=== PATIENT | female | born 1980 | race Caucasian/White ===

== ENCOUNTER 2024-05-22 06:45 | Inpatient (IN) | payer MEDICAID ==
[~2024-05-22] VITALS: Ht 165.1 cm; Wt 69.0 kg
[2024-05-22 07:41] LABS: BASOPHILS % (AUTO) 0.7 % (0.0-2.0); EOSINOPHILS % (AUTO) 0.5 % (1.0-6.0); HEMOGLOBIN 13.6 g/dL (12.0-16.0); LYMPHOCYTES # (AUTO) 1.7 K/uL (1.0-4.8); LYMPHOCYTES % (AUTO) 41.2 % (22.0-44.0); MEAN CORPUSCULAR HEMOGLOBIN 31.7 pg (26.0-34.0); MEAN CORPUSCULAR VOLUME 93 fL (80-100); MONOCYTES # (AUTO) 0.2 K/uL (0.1-1.0); MONOCYTES % (AUTO) 4.6 % (2.0-9.0); NEUTROPHILS # (AUTO) 2.2 K/uL (1.8-7.7); PLATELET COUNT (AUTO) 392 K/uL (150-450); RED BLOOD CELL COUNT(AUTO) 4.29 MIL/uL (4.00-5.20); WHITE BLOOD COUNT (AUTO) 4.2 K/uL (4.5-11.0)
[2024-05-22 07:50] LABS: ANION GAP 10 mmol/L (8-16); CALCIUM, TOTAL 8.2 mg/dL (8.8-10.5); CARBON DIOXIDE 25 mmol/L (22-29); CHLORIDE 104 mmol/L (98-107); CREATININE 0.78 mg/dL (0.60-1.30); GLOMERULAR FILTR. RATE CALC > 60 mL/min (>60); GLUCOSE,RANDOM 92 mg/dL (70-110); POTASSIUM 3.5 mmol/L (3.5-5.1); SODIUM SERUM 139 mmol/L (136-145); UREA NITROGEN, BLOOD 10 mg/dL (7-18)
[2024-05-22 07:58] LABS: SALICYLATE 2.5 mg/dL (2.8-20.0)
[2024-05-22 08:01] LABS: ALANINE AMINOTRANSFERASE 23 U/L (12-78); ALBUMIN 3.8 g/dL (3.4-5.0); ALKALINE PHOSPHATASE 97 U/L (46-116); ASPARTATE AMINOTRANSFERASE 24 U/L (15-37); BILIRUBIN,TOTAL 0.2 mg/dL (0.1-1.0); HCG,QUANTITATIVE < 1 mIU/mL (0-6); TOTAL PROTEIN, SERUM 8.3 g/dL (6.4-8.2)
[2024-05-22 08:28] LABS: ACETAMINOPHEN < 2 mcg/mL (10-30)
[2024-05-22 09:28] LABS: COVID AG,FIA SOURCE NASAL SWAB
[2024-05-22 09:39] LABS: ALCOHOL, URINE DRUG SCREEN POSITIVE (NEGATIVE); AMPHET/METH SCREEN,URINE NEGATIVE (NEGATIVE); BARBITURATE SCREEN, URINE NEGATIVE (NEGATIVE); BENZODIAZEPINES SCREEN,URINE NEGATIVE (NEGATIVE); CANNABINOID SCREEN,URINE NEGATIVE (NEGATIVE); COCAINE SCREEN,URINE NEGATIVE (NEGATIVE); METHADONE SCREEN, URINE NEGATIVE (NEGATIVE); OPIATE SCREEN,URINE NEGATIVE (NEGATIVE); PHENCYCLIDINE SCREEN,URINE NEGATIVE (NEGATIVE)
[2024-05-22 09:57] LABS: SARS-COV2 (COVID) ANTIGEN,FIA Negative (Negative)
[2024-05-22 11:25] VITALS: O2SAT 99
[2024-05-22] MEDS: ONDANSETRON HCL 4 MG TABLET PO ONE (14:39)
[2024-05-22] MEDS ORDERED: HALOPERIDOL 5 MG TABLET PO PRN (16:45)
[2024-05-22] MEDS ORDERED: ZOLPIDEM TARTRATE 10 MG TABLET PO PRN (16:45)
[2024-05-22] MEDS ORDERED: LORazepam 2 MG TABLET PO PRN (16:45)
[2024-05-22] MEDS ORDERED: ALBUTEROL SULFATE HFA 90 MCG/PUFF 8 GM INHALER IH PRN (18:15)
[2024-05-22] MEDS ORDERED: LOPERAMIDE HCL 2 MG CAPSULE PO PRN (18:15)
[2024-05-22] MEDS ORDERED: MAG HYDROX/ALUMINUM HYD/SIMETH ES 30 ML SUSPENSION UDCUP PO PRN (18:15)
[2024-05-22] MEDS ORDERED: DOCUSATE SODIUM 100 MG CAPSULE PO PRN (18:15)
[2024-05-22] MEDS ORDERED: CloNIDine HCL 0.1 MG TABLET PO PRN (18:15)
[2024-05-22] MEDS ORDERED: ACETAMINOPHEN 325 MG TABLET PO PRN (18:15)
[2024-05-22] MEDS ORDERED: ONDANSETRON HCL 4 MG TABLET PO PRN (18:15)
[2024-05-22] MEDS ORDERED: MAGNESIUM HYDROXIDE SUSPENSION 30 ML UDCUP PO PRN (18:15)
[2024-05-22] MEDS ORDERED: GuaiFENesin/D-METHORPHAN [SUGAR-FREE] 200-20MG/10 ML SYRUP UDCUP PO PRN (18:15)
[2024-05-22] MEDS ORDERED: NICOTINE 14 MG/24 HOUR PATCH TD PRN (18:15)
[2024-05-22] MEDS ORDERED: PETROLATUM,WHITE 28 GM JELLY TP PRN (18:15)
[2024-05-22 18:23] VITALS: BP 132/84; PULSE 72; RESP 16; TEMP 98; O2SAT 99
[2024-05-22 22:30] VITALS: BP 134/80; PULSE 76; RESP 16; TEMP 98.2; O2SAT 95
[2024-05-23 08:19] VITALS: BP 103/63; PULSE 87; RESP 16; TEMP 98.7; O2SAT 98
[2024-05-23 09:15] VITALS: RESP 16
[2024-05-23] MEDS: IBUPROFEN 400 MG TABLET PO PRN (09:15)
[2024-05-23 09:55] LABS: BASOPHILS % (AUTO) 0.7 % (0.0-2.0); EOSINOPHILS % (AUTO) 1.4 % (1.0-6.0); HEMATOCRIT 40.7 % (36-46); HEMOGLOBIN 13.7 g/dL (12.0-16.0); LYMPHOCYTES # (AUTO) 1.6 K/uL (1.0-4.8); LYMPHOCYTES % (AUTO) 32.1 % (22.0-44.0); MEAN CORPUSCULAR HEMOGLOBIN 31.5 pg (26.0-34.0); MEAN CORPUSCULAR HGB CONC 33.7 G/dL (31.0-37.0); MEAN CORPUSCULAR VOLUME 94 fL (80-100); MONOCYTES % (AUTO) 8.5 % (2.0-9.0); NEUTROPHILS # (AUTO) 2.9 K/uL (1.8-7.7); NEUTROPHILS % (AUTO) 57.3 % (40.0-70.0); PLATELET COUNT (AUTO) 383 K/uL (150-450); RED BLOOD CELL COUNT(AUTO) 4.35 MIL/uL (4.00-5.20); RED CELL DISTRIBUTION WIDTH 13.5 % (11.5-14.5); WHITE BLOOD COUNT (AUTO) 5.1 K/uL (4.5-11.0)
[2024-05-23 09:56] LABS: MONOCYTES # (AUTO) 0.4 K/uL (0.1-1.0)
[2024-05-23 10:01] LABS: HEMOGLOBIN A1C 5.5 % (3.8-5.6)
[2024-05-23] MEDS: SERTRALINE HCL 50 MG TABLET PO SCH (10:06)
[2024-05-23 10:15] VITALS: RESP 16
[2024-05-23 10:27] LABS: ALANINE AMINOTRANSFERASE 17 U/L (12-78); ALBUMIN 3.4 g/dL (3.4-5.0); ALKALINE PHOSPHATASE 93 U/L (46-116); ANION GAP 8 mmol/L (8-16); ASPARTATE AMINOTRANSFERASE 21 U/L (15-37); BILIRUBIN,TOTAL 0.4 mg/dL (0.1-1.0); CALCIUM, TOTAL 8.8 mg/dL (8.8-10.5); CARBON DIOXIDE 27 mmol/L (22-29); CHLORIDE 102 mmol/L (98-107); CHOL/HDL RATIO 3.1 (3.9-5.7); CHOLESTEROL 211 mg/dL (131-200); CREATININE 0.93 mg/dL (0.60-1.30); FREE T4 (FREE THYROXINE) 0.88 ng/dL (0.76-1.46); GLOMERULAR FILTR. RATE CALC > 60 mL/min (>60); GLUCOSE,RANDOM 92 mg/dL (70-110); HCG,QUANTITATIVE 1 mIU/mL (0-6); HDL CHOLESTEROL 69 mg/dL (40-60); LDL CHOL (CALC.) 124 mg/dL (0-130); SODIUM SERUM 137 mmol/L (136-145); THYROID STIMULATING HORMONE 0.84 uIU/mL (0.36-3.74); TOTAL PROTEIN, SERUM 7.7 g/dL (6.4-8.2); TRIGLYCERIDES 90 mg/dL (15-150); UREA NITROGEN, BLOOD 15 mg/dL (7-18)
[2024-05-23 20:08] VITALS: BP 119/71; PULSE 74; RESP 18; TEMP 98.2; O2SAT 96
[2024-05-24 03:06] LABS: HEPATITIS C AB (EIA) Non Reactive (Non Reactive)
[2024-05-24 08:23] VITALS: BP 100/66; PULSE 86; RESP 16; TEMP 97.5; O2SAT 98
[2024-05-24 20:00] VITALS: BP 105/61; PULSE 72; RESP 16; TEMP 97.8; O2SAT 98
[2024-05-25] MEDS ORDERED: SERT-158 PO (07:40)
[2024-05-25 08:33] VITALS: BP 100/66; PULSE 82; RESP 16; TEMP 98; O2SAT 98
[2024-05-26 09:33] LABS: APPEARANCE,URINE HAZY (CLEAR); BILIRUBIN,URINE NEGATIVE (NEGATIVE); COLOR,URINE YELLOW (YELLOW); GLUCOSE, URINE (UA) NEGATIVE (NEGATIVE); KETONES,URINE NEGATIVE (NEGATIVE); LEUKOCYTE ESTERASE ,URINE NEGATIVE (NEGATIVE); NITRATE,URINE NEGATIVE (NEGATIVE); OCCULT BLOOD,URINE NEGATIVE (NEGATIVE); PH,URINE 6.5 (5.0-8.0); PROTEIN,URINE TRACE mg/dL (NEGATIVE); SPECIFIC GRAVITIY, URINE 1.022 (1.003-1.030); UROBILINOGEN,URINE <=1.0 mg/dL (<=1.0)
== END 2024-05-25 07:45 | disposition home or self-care (01) | DRG 751 ==
LOC: EMS 06:45 → B3A 16:24
PROVIDERS: ADMIT Psychiatry & Neurology Child & Adolescent Psychiatry; ATTEND Psychiatry & Neurology Child & Adolescent Psychiatry
PROC: GZ56ZZZ Individual Psychotherapy, Supportive (ICD-10-PCS; principal; 2024-05-23)
DX: F33.2 Major depressive disorder, recurrent severe without psychotic features (principal); D72.819 Decreased white blood cell count, unspecified; G47.00 Insomnia, unspecified; Z20.822 Contact with and (suspected) exposure to COVID-19; F12.90 Cannabis use, unspecified, uncomplicated; I10 Essential (primary) hypertension; T40.2X2A Poisoning by other opioids, intentional self-harm, initial encounter; Y92.89 Other specified places as the place of occurrence of the external cause
CPT/HCPCS: 80048; 80053; 80061; 80076; 80307; 81003; 83036; 84439; 84443; 84702; 85025; 86803; 87340; 93005; 99285; G0480; G0481; Q0162